=== PATIENT | male | born 1985 | race Hispanic/Latino ===

== ENCOUNTER 2016-11-27 08:54 | Emergency (ER) | payer OTHER, BC ==
[2016-11-27 09:08] VITALS: BP 130/70
[2016-11-27] MEDS ORDERED: MOTRIN PO ONE (09:19)
[2016-11-27] MEDS ORDERED: NORCO 5/325 PO ONE (09:19)
[2016-11-27] MEDS ORDERED: FLEXERIL PO ONE (09:19)
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
== END 2016-11-27 11:13 | disposition home or self-care (01) ==
LOC: ED 08:54
DX: S01.01XA Laceration without foreign body of scalp, initial encounter (principal); V49.49XA Driver injured in collision with other motor vehicles in traffic accident, initial encounter; Y93.9 Activity, unspecified; Y92.9 Unspecified place or not applicable; Y99.9 Unspecified external cause status
CPT/HCPCS: 70450; 72125; 99284